=== PATIENT | male | born 1995 | race Caucasian/White ===

== ENCOUNTER → 2017-09-13 | Outpatient (CLI) | payer OTHER ==
--- NOTE | 2017-09-13 13:22 | DIAGNOSTIC IMAGING REPORT ---
LEFT KNEE 4 VIEWS HISTORY: LEFT KNEE PAIN COMPARISON: None. FINDINGS: There is no fracture or dislocation. Soft tissues are unremarkable. Trace knee effusion. No significant soft tissue swelling. IMPRESSION: Trace knee effusion. No fractures within the left knee. Electronically signed by: Eddie Cifuentes M.D. 09/13/2017 1:21 PM Dictated Date/Time: 09/13/2017 1:20 PM
== END | disposition home or self-care (01) ==
LOC: C.RDSM 12:30
PROVIDERS: ATTEND Family Medicine
DX: M25.562 Pain in left knee (principal)

== ENCOUNTER → 2017-09-18 | Outpatient (CLI) | payer OTHER ==
[~2017-09-18] MED LIST: FLUT0.15 NAE
--- NOTE | 2017-09-18 23:31 | DIAGNOSTIC IMAGING REPORT ---
L LOWER EXT JOINT WITHOUT CLINICAL HISTORY: 22 years-old Male with LEFT KNEE PAIN. Acute medial left knee pain COMPARISON: Left knee radiographs 09/13/2017 TECHNIQUE: Multiplanar, multisequence MRI of the left knee was performed without intravenous contrast. FINDINGS: MENISCI: Complex tear involves the medial meniscal body, posterior junction and posterior horn with the meniscus appearing irregular, truncated and macerated within this distribution. There is suggestion of a flipped meniscal fragment in the adjacent meniscal gutter extending superiorly adjacent to the meniscal body as seen on image 15 series 5. Mild associated parameniscal edema. Lateral meniscus is sharp in contour and appears intact. CRUCIATE LIGAMENTS: The anterior and posterior cruciate ligaments are normal in signal, morphology and course. COLLATERAL LIGAMENTS: The popliteus tendon, biceps femoris tendon, fibular collateral ligament and iliotibial band are intact. The superficial and deep components of the medial collateral ligament are intact. EXTENSOR MECHANISM: The quadriceps and patellar tendons are intact. The medial and lateral patellar retinacula are intact. Mildly increased T2 signal involves the proximal fibers of the patellar tendon suggesting mild tendinosis. KNEE JOINT: Moderate joint effusion without evidence of intra-articular loose body. No acute fracture, significant degenerative changes or osteochondral defect. BONE MARROW: The bone marrow signal is age appropriate. No fracture, marrow edema, or marrow replacing process. SOFT TISSUES: The periarticular soft tissues are normal. IMPRESSION: 1. Complex tear of the medial meniscal body, posterior junction and posterior horn which is truncated, irregular and macerated. Flipped meniscal fragment is seen within the adjacent meniscal gutter extending superiorly as above. 2. No ligamentous tear or fracture. 3. Mild proximal patellar tendinosis. 4. Moderate joint effusion. The above report was generated using voice recognition software. It may contain grammatical, syntax or spelling errors. Electronically signed by: Nilesh Cartagena M.D. 09/18/2017 11:30 PM Dictated Date/Time: 09/18/2017 11:22 PM
== END | disposition home or self-care (01) ==
LOC: C.MRI 20:17
PROVIDERS: ATTEND Family Medicine
DX: S83.232A Complex tear of medial meniscus, current injury, left knee, initial encounter (principal); X58.XXXA Exposure to other specified factors, initial encounter

== ENCOUNTER → 2017-09-25 | Day surgery (SDC) | payer OTHER ==
[2017-09-24 14:18] VITALS: Ht 190.5 cm; Wt 90.9 kg
[~2017-09-25] VITALS: Ht 190.5 cm; Wt 90.9 kg
[~2017-09-25] MED LIST changes: +ATROPINE SULFATE 0.1 MG/ML 5ML SYR IV PRN; +BUPIVACAINE/EPINEPHRINE 0.5% MPF 1:200,000 30 ML VIAL ONE; +CEFAZOLIN SOD 2000MG/15 ML IV PUSH IV ONE; +EpHEDrine SULFATE INJ 50 MG/ML AMP IV PRN; +FENTANYL CITRATE INJ 50 MCG/1 ML 2 ML VIAL IV PRN; +FENTANYL CITRATE INJ 50 MCG/1 ML 2 ML VIAL ONE; +FLUMAZENIL 0.1 MG/1 ML 10 ML VIAL IV PRN; +HYDROmorphone INJ 0.5 MG/0.5 ML SYR IV PRN; +LABETALOL HCL IV 5 MG/ML 20ML IV PRN; +LIDOCAINE HCL 2% 2 ML VIAL (20MG/ML) ONE; +MEPERIDINE HCL 25 MG/ML CARP IV PRN; +MIDAZOLAM HCL 1 MG/ML 2ML VIAL ONE; +MORPHINE SULFATE 1MG/1ML 30ML VIAL IV ONE; +NALOXONE HCL 0.4 MG/1 ML VIAL/CARP IV PRN; +ONDANSETRON INJ 2 MG/ML 2 ML VIAL IV PRN; +ONDANSETRON INJ 2 MG/ML 2 ML VIAL ONE; +PHENYLEPHRINE 100MCG/ML 5ML SYR IV PRN; +PROPOFOL IV EMULSION 10 MG/ML 20 ML VIAL IV ONE; +SODIUM CHLORIDE 0.9% 1000ML 1,000 ML IV SCH
--- NOTE | 2017-09-25 06:31 | History & Physical Bridge Note ---
H&P Re-Evaluation Bridge Note: I have examined the patient, reviewed the History & Physical and in the interval since the performance of the History & Physical I have noted the following changes of clinical significance: consent obtained.No changes noted
--- NOTE | 2017-09-25 06:33 | Discharge Instructions ---
Discharge Instructions Date of Service Sep 25, 2017. Visit Reason for Visit: Left Knee Medial Meniscus Tear Discharge Discharge Diagnosis / Problem: same Discharge Goals Goal(s): Decrease discomfort, Improve function Medications Stopped Medications Name(s): na Restart Stopped Medication(s): use all scripts as directed Activity Recommendations Activity Limitations: as noted below Lifting Limitations: until after follow-up appointment Exercise/Sports Limitations: until after follow-up appointment May Resume Sexual Activity: when tolerated Shower/Bathe: keep incision dry Driving or Machine Use: resume 1 day after discharge Weightbearing Status: Left weightbearing (as tolerated) Anesthesia . Post Anesthesia Instructions: If you have had General Anesthesia or IV Sedation: * Do not drive today. * Resume driving when surgeon permits. * Do not make important decisions or sign legal documents today. * Call surgeon for: 1. Temperature elevations greater than 101 degrees F. 2. Uncontrollable pain. 3. Excessive bleeding. 4. Persistent nausea and vomiting. 5. Medication intolerance (nausea, vomiting or rash). * For nausea and vomiting use only clear liquids such as: tea, soda, bouillon until nausea subsides, then gradually increase diet as tolerated. * If you have any concerns or questions, call your surgeon's office. If physician is unavailable and it is an emergency, call 911 or go to the nearest emergency room. . Instructions / Follow-Up Instructions / Follow-Up The following are instructions to follow after your Arthroscopic Knee Surgery. ACTIVITY RECOMMENDATIONS: * Minimize activity until your first visit after surgery. * No excessive walking, jogging, sports or laboring. * Return to activity is individualized. Most patients are able to return to every day activities within one month. * Return to sports or intensive labor usually occurs at 2-3 months. * Driving is not permitted until at least your first postoperative visit at a minimum. Please ask your doctor when it is safe to resume driving. If you have an automatic vehicle and your left leg has been operated on, then you may begin driving as soon as you are comfortable and can drive safely. SCHOOL/WORK RECOMMENDATIONS: * You may return to sedentary work or school when you are feeling more comfortable. This is usually 3-7 days after surgery. * Expect increased discomfort with increased activity. Continue to elevate and ice the leg as much as possible. MEDICATIONS: * You will have a prescription for pain medication and an anti-inflammatory medication after surgery. * Use the pain medication for severe pain and the anti-inflammatory for less severe pain. Once the pain medication has run out, try to use the anti-inflammatory medication. If this is not effective, contact the office for assistance. * The pain medication may cause nausea, constipation and drowsiness. You should see how they affect you before driving or similar activity. * The anti-inflammatory medication may cause stomach upset and bleeding. If this occurs let your doctor know immediately . * Take a stool softener like Colace or a laxative like Senokot to prevent constipation. DIET: * Resume previous diet. SPECIAL CARE: ICE: You have the option of an ice cooler, gel packs or ice bags. * If you have an ice cooler, refer to the instructions for that device. The ice cooler may be used continuously. * If you do not have an ice cooler, you will need to use ice bags or gel packs. Do not apply ice directly to the skin. Use a thin dressing or humaira shirt between the skin and ice bag. Apply ice for 20-30 minutes and repeat every 2-4 hours. This is especially important for the first 7-10 days after surgery. Once the pain improves, use ice as needed. ELEVATION: * Keep your leg elevated at or above the level of your heart as much as possible. * Expect some increased discomfort and swelling if you are standing for any length of time. * When lying down, avoid placing anything under your knee. Rather, prop your leg up by placing several pillows under your heel or calf. DRESSING: * Your dressing will be changed at your first therapy appointment approximately 4-5 days after surgery. Band-aids, tape strips or gauze may be applied. You may then change your dressing daily. * Reapply dressing followed by the Sadi wrap or Tubi-collar baster jumpbasting stockinet and EBIce cooling pad (if chosen). * Always wash your hands prior to touching the incision area. * Once the stitches are removed, you may leave the wound open to air or cover with an Sadi wrap or Tubi-collar baster jumpbasting stockinet. * If you have been given a white elastic stocking (TYRELL hose), wear as much as possible for the first 1-3 weeks depending on swelling. * Expect some bloody drainage for the first few days after surgery. * Leave the tape strips, if present, in place for 5-7 days. * Band-aids and gauze may be changed daily. CRUTCHES: * You will need to use crutches after surgery. * You may gradually progress to full weight bearing as tolerated and wean off the crutches unless otherwise advised. * Your therapist can provide assistance weaning off crutches. * Patients who have a microfracture done may need to be toe-touch weight- bearing for 4-6 weeks. BATHING: * You may shower or sponge-bathe immediately after surgery. * The dressing will need to be covered with a plastic bag or plastic wrap until the dressing is changed on the fourth or fifth day after surgery. * Once the dressing has been changed on the fourth or fifth day after surgery, you may shower and get the incision wet. * Wash with regular soap and water. * Do not bathe (submerge the incision), soak, swim or use a hot tub until the incision is completely healed over with normal skin and the doctor has given the OK to proceed. * There is no need to apply any ointments, powders or salves to your incision. * Do not apply alcohol or hydrogen peroxide directly to the incision. * Diluted peroxide (50:50 mixture with sterile saline) may be used to clean dried blood from around the incision area. BRACE: * Bracing is generally not needed after routine Arthroscopic Knee surgery. THERAPY: * You will begin therapy four or five days after surgery. * Organized therapy with the therapist is important for the first 4-6 weeks after surgery. During that time you will attend therapy 1-3 times per week. * You will also need to do daily exercises for range of motion and strength as instructed. PROBLEMS/QUESTIONS: * If you have any problems such as severe pain, numbness, tingling or high fevers or if you have any questions, please contact the office at [phone]. * It is not uncommon to have some numbness and tingling after the surgery especially if you have had a nerve block done. This should gradually improve over the first 1- 2 days. If this persists longer or worsens please contact the office. FOLLOW UP VISIT: * If not already scheduled, please call the office at to schedule a follow-up appointment for 10 days, 6 weeks and 3 months after surgery. Diet Recommendations Recommended Home Diet: resume previous diet Procedures Procedures Performed: see op note Pending Studies Studies pending at discharge: no Medical Emergencies . Who to Call and When: Medical Emergencies: If at any time you feel your situation is an emergency, please call 911 immediately. . Non-Emergent Contact Non-Emergency issues call your: Specialist Call Non-Emergent contact if: temperature is above 101.5, wound has increased drainage, wound has increased pain . . "Provider Documentation" section prepared by Devendra Daley. .
--- NOTE | 2017-09-25 08:32 | [facility] Post Operative Brief Note ---
Immediate Operative Summary Operative Date Sep 25, 2017. Pre-Operative Diagnosis Left Knee Medial Meniscus Tear Post-Operative Diagnosis same Procedure(s) Performed Left Knee Arthroscopic Medial Meniscectomy Surgeon Dr Daley Whiteprinting Machine Operator Surgeon(s) MAYE Love Estimated Blood Loss TRACE Findings Consistent with Post-Op Diagnosis Fluids (cc crystalloids) 750cc Specimens none Drains None Anesthesia Type General Complication(s) none Disposition Accompanied Pt To Recovery: no Disposition: Recovery Room / PACU
--- NOTE | 2017-09-25 08:50 | Medical Student: [facility] ---
Immediate Operative Summary Operative Date Sep 25, 2017. Pre-Operative Diagnosis Left knee medial meniscal tear Post-Operative Diagnosis Left knee medial meniscal tear Procedure(s) Performed Left knee arthroscopy with left medial meniscectomy Surgeon Dr. Daley Supervisor Spinning Surgeon(s) Ayush Del Valle PA-C Estimated Blood Loss Trace Findings Left knee medial meniscal tear Fluids (cc crystalloids) 750cc Specimens No specimens were obtained Drains None Anesthesia General Complication(s) None Disposition Recovery Room / PACU
--- NOTE | 2017-09-25 09:01 | OPERATIVE REPORT ---
DATE OF OPERATION: 09/25/2017 SURGEON: Devendra Daley MD. PHARMACEUTICAL OFFICER: Ayush Del Valle PA-C SECOND PHARMACEUTICAL OFFICER: Med Dianne snow. PREOPERATIVE DIAGNOSIS: Large medial meniscus tear with acute on chronic findings, physical exam and MRI scan. POSTOPERATIVE DIAGNOSIS: Same. OPERATION PERFORMED: 1. Exam under anesthesia. 2. Diagnostic arthroscopy. 3. Arthroscopic partial medial meniscectomy, complex tear pattern radial and horizontal cleavage and mucoid degeneration. 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 Physical exam reveals stable knee in the sense of symmetry with cruciates and collateral ligaments, has a mild to moderate effusion. X-ray is negative. MRI scan reveals a very large medial meniscus tear with a pedunculated flap anteriorly based stuck into the gutter. DESCRIPTION OF THE PROCEDURE: The patient appropriately identified, site verified, consent verified. Antibiotics confirmed as being given. The left lower extremity was examined, compared to the right lower extremity having no ligamentous instability, asymmetry. He had stable Lokesh, pivot shift, anterior drawer test, hyperextendable knees. The knee was then sterilely injected with 20 mL of 0.5% Marcaine with epinephrine and 5 mg of Duramorph for postoperative pain control. The knee was then prepped and draped in usual routine fashion. Inframedial and inferolateral portals were then injected with 3 mL of 0.5% Marcaine with epinephrine. The inferolateral portal was then made. The inferomedial portal was then made using scope localization. Inspection of the joint revealed healthy articular surfaces of all 3 compartments. The lateral meniscus had some minor fraying which was incidentally debrided. The ACL and PCL were thoroughly inspected revealing no injury. The medial meniscus had a very complex, very acute on chronic looking tear of the medial meniscus with a pedunculated flap and the gutter. Radial split to the meniscal capsular junction horizontal extension into the posterior horn with mucoid degeneration and delamination. This area was trimmed as conservatively as possible with stable balanced contoured rim. There was no way to repair this and having sutures really hold things nicely and high probability of re-tearing. This would especially occur in the face of a stable knee and this injury occurring in the face of a stable knee. This indicates significant mucoid changes to the meniscus. Once this was trimmed and looked from both sides, no additional pathology identified. The procedure was terminated. All instruments and fluid removed. The portal was closed with 4-0 nylon, dressed with Xeroform, 4 x 4 gauze, sterile Webril, ABD pads, above knee TYRELL stocking. The patient will be weightbearing to tolerance. Aspirin for DVT prophylaxis. Estimated blood loss, trace. Fluids, 750 mL of crystalloid. Overall prognosis for his knee long-term is guarded based on the size of the meniscus tear. This was all described to the patient preoperatively. I attest to the content of the Intraoperative Record and any orders documented therein. Any exception s are noted below.
[2017-09-25 09:27] VITALS: TEMP 36.6
--- NOTE | 2017-09-25 09:33 | Anesthesia Progress Nt - [facility] ---
Anesthesia Post Op Note Date & Time Sep 25, 2017 at 09:33 Vital Signs Pain Intensity: 0 Vital Signs Past 12 Hours Date Time Temp Pulse Resp B/P (MAP) Pulse Ox O2 Delivery O2 Flow Rate FiO2 09/25/17 09:21 55 14 09/25/17 09:21 54 14 127/70 98 09/25/17 09:21 37.1 60 12 127/70 98 Room Air 09/25/17 09:16 57 8 135/73 98 09/25/17 09:16 57 8 09/25/17 09:11 64 11 09/25/17 09:11 59 11 129/77 100 09/25/17 09:06 56 12 135/68 100 09/25/17 09:06 55 12 09/25/17 09:01 55 12 131/67 100 09/25/17 09:01 56 12 09/25/17 08:56 55 11 133/61 100 09/25/17 08:56 55 11 09/25/17 08:51 54 11 124/58 100 09/25/17 08:51 55 11 09/25/17 08:47 117/55 09/25/17 08:46 36.5 54 12 117/55 100 Mask 6 09/25/17 06:42 36.5 56 16 124/73 (90) 98 Room Air Notes Mental Status: alert / awake / arousable, participated in evaluation Pt Amnestic to Procedure: Yes Nausea / Vomiting: adequately controlled Pain: adequately controlled Airway Patency, RR, SpO2: stable & adequate BP & HR: stable & adequate Hydration State: stable & adequate Anesthetic Complications: no major complications apparent
[2017-09-25 09:56] VITALS: BP 127/68; PULSE 69; O2SAT 100
--- NOTE | 2017-09-26 12:01 | [facility] Operative Report ---
Operative Report Operative Date Sep 25, 2017. Pre-Operative Diagnosis Left Knee Medial Meniscus Tear Post-Operative Diagnosis left knee same Procedure(s) Performed Left Knee Arthroscopic Medial Meniscectomy Surgeon Dr Daley Wire Bender Hand Surgeon(s) MAYE Love Estimated Blood Loss TRACE Findings medial meniscal tear Fluids 750cc Specimens none Drains None Anesthesia Type General Complication(s) none Disposition no Recovery Room / PACU Indications This 22-year-old white male presented to the office with complaints of left knee pain after injuring himself during a cheerleading event. He complains of a pop and subsequent pain over the medial aspect of his left knee. He had tried conservative care measures without improvement. Preoperative imaging was obtained. He elected to proceed with surgical intervention in hopes of alleviating his discomfort. Description of Procedure Patient was taken to the operating room where he was given general anesthesia. He was prepped and draped in usual sterile fashion. Please see Dr. Daley's operative report for specifics of the procedure. I was present for the entire case from initial patient positioning through final wound closure. Assistance was provided in patient positioning, arthroscopy, and final wound closure. Patient was taken to the recovery room in satisfactory condition. I attest to the content of the Intraoperative Record and any orders documented therein. Any exceptions are noted below.
== END | disposition home or self-care (01) ==
LOC: X.SURG 06:26
PROVIDERS: ATTEND Physical Medicine & Rehabilitation Sports Medicine
DX: S83.232A Complex tear of medial meniscus, current injury, left knee, initial encounter (principal); X58.XXXA Exposure to other specified factors, initial encounter; Y93.45 Activity, cheerleading